=== PATIENT | male | born 1965 | race Caucasian/White ===

== ENCOUNTER → 2016-06-04 | Day surgery (SDC) | payer OTHER ==
[~2016-06-04] VITALS: Ht 188 cm; Wt 88.5 kg
[~2016-06-04] MED LIST: 0.9% Sodium Chloride 1,000 ML IV SCH; ASCO100T11 PO; CHOL100043 PO; Sodium Chloride LOK Flush 10 mL Syringe IV PRN; fentaNYL-PF 50 mCg/mL 2 mL Inj IVPUSH PRN
[2016-06-04 09:10] VITALS: BP 141/93; PULSE 71; RESP 14; O2SAT 98
--- NOTE | 2016-06-04 10:06 | PCM.ENDCOL ---
Colonoscopy Date of Service: Jun 04, 2016 Physician Mega Muse MD Pre Procedure Diagnosis: Screening Post Procedure Dx & Findings: Polyp hemorrhoids diverticuli Procedure Colonoscopy PROCEDURE IN DETAIL: Prep fair Withdrawal time 11 minutes After unremarkable rectal examination the Olympus video colonoscope was inserted patient's anal canal and was advanced to cecum. Landmarks were identified including the ileocecal valve and appendiceal orifice. Scope was withdrawn systematically. Visualized colonic mucosa showed healthy shiny mucosa with normal healthy-appearing vasculature. On the way in to the cecum, 3 mm polyp was found which was removed completely using cold snare. On the way out, we saw a few small diverticuli in the ascending colon. In the rectum retroflexion was done which showed hemorrhoids. Anal canal was inspected carefully on the way out and hemorrhoids noted. Impression The prep Polyp 1 status post complete removal Diverticuli Hemorrhoids Recommendation Repeat colonoscopy 1 year. Patient did not take his prep properly. Diverticular diet Presedation Assessment Risks and Benefits Informed consent was obtained from the patient after all risks and benefits including but not limited to drug reaction, infection, pain, bleeding, perforation, as well as alternatives were discussed. Patient monitoring Continuous pulse oximetry, cardiac monitoring, blood pressure monitoring, IV access, and oxygen at 2L per nasal cannula. Periprocedural Fentanyl: Fentanyl 150mcg Incrementally Midazolam: Midazolam 7mg Incrementally Complications There were no periprocedural complications identified. Post Procedure Plan Post Procedure Recommendations 1. Restrict activities today. 2. Resume normal activities in the morning. 3. Resume medications. 4. Patient informed of normal post procedure side effects as bloating, drowsiness, blood streaking in the stool. 5. average risk CRCS. If colon polyps come back as: -Hyperplastic- can repeat colonoscopy in 10 years -Tubular adenoma- repeat colonoscopy in 5 years -Tubulovillous/villous adenoma- repeat colonoscopy in 3 years -If any dysplasia- return to clinic as soon as possible 6. Please don't hesitate to call me with any questions. Mega Muse MD Jun 04, 2016 10:06
[2016-06-04 10:08] VITALS: BP 156/92; PULSE 73; RESP 14; O2SAT 95
[2016-06-04 10:18] VITALS: BP 161/97; PULSE 74; RESP 14; O2SAT 98
--- NOTE | 2016-06-06 11:25 | PATH ---
SURGICAL PATHOLOGY Attending Physician:Mega Muse M.D. CASE STATUS: Signed Out PATIENT NAME: PEDRO COLLADO PID: [id number] : 1965 DATE COLLECTED:06/04/2016 16:33 SPECIMEN: Colon, Biopsy CLINICAL HISTORY: PHX OF POLYPS 1). TRANSVERSE COLON POLYP X1 FINAL DIAGNOSIS: 1.TRANSVERSE COLON POLYP: TUBULAR ADENOMA INVOLVING BOTH BIOPSY FRAGMENTS. ICD10 CODE D12.3 GROSS DESCRIPTION: The specimen is received in one formalin filled container labeled with the patient's name, sublabeled "transverse colon polyp x1" and consists of 2 portions of tissue which aggregate to 0.3 x 0.3 x 0.2 CM. The specimen is entirely submitted in one cassette. 06/04/2016 DAC MICRO DESCRIPTION: See diagnosis. ICD-9 CODES: CPT CODES: 1: 05434 Electronically Signed Out Valentino Lara MD [facility] [address], [place] [address] Technical component performed at [facility], [facility] [address], [place], [address]
== END | disposition home or self-care (01) ==
LOC: END 00:32
PROVIDERS: ATTEND Internal Medicine
DX: Z12.11 Encounter for screening for malignant neoplasm of colon (principal); Z86.010 Personal history of colon polyps; D12.3 Benign neoplasm of transverse colon; K57.30 Diverticulosis of large intestine without perforation or abscess without bleeding; K64.9 Unspecified hemorrhoids
CPT/HCPCS: 45385; 99153; G0500; J2250; J3010; J7030